=== PATIENT | male | born 1950 ===

== ENCOUNTER 2018-07-28 11:28 | Outpatient (CLI) | payer MEDICARE, OTHER, SELFPAY ==
--- NOTE | 2018-07-28 11:25 | DI.RAD_ITS ---
SYMPTOM/DIAGNOSIS: PAIN LEFT HIP: The patient is status post THR. The prosthesis is in good position, unchanged when compared with prior images.
== END 2018-07-28 11:48 ==
PROVIDERS: PCP Family Medicine; Referring Provider Family Medicine; Visit Provider Orthopaedic Surgery
DX: M70.62 Trochanteric bursitis, left hip (principal); Z96.642 Presence of left artificial hip joint; M79.652 Pain in left thigh
CPT/HCPCS: 20610; 99211; 99214; 73502; J1040

== ENCOUNTER → 2018-12-15 09:48 | Outpatient (BNVA) | payer MEDICARE, OTHER, SELFPAY | PROVIDERS: PCP Family Medicine; Referring Provider Family Medicine; Visit Provider Orthopaedic Surgery | DX: M70.62 Trochanteric bursitis, left hip (principal) | CPT/HCPCS: 20610; 99213; 99214; J1040 ==

== ENCOUNTER 2019-01-19 10:26 | Outpatient (CLI) | payer MEDICARE, OTHER, SELFPAY ==
--- NOTE | 2019-01-19 10:21 | DI.RAD_ITS ---
SYMPTOMS/DIAGNOSIS: PAIN LOCATED OVER MIDDLE ASPECT OF ITB LEFT FEMUR: Two views. Portions of the proximal and distal femur were coned from view. The patient has a left total hip replacement which is incompletely visualized. The visualized femur is unremarkable. No acute fracture, dislocation, lytic or sclerotic lesion is seen. Vascular calcifications are seen in the soft tissues. IMPRESSION: No acute abnormality.
== END 2019-01-19 10:46 ==
PROVIDERS: PCP Family Medicine; Referring Provider Family Medicine; Visit Provider Orthopaedic Surgery
DX: M25.552 Pain in left hip (principal); Z96.642 Presence of left artificial hip joint; M70.60 Trochanteric bursitis, unspecified hip
CPT/HCPCS: 73552; 99213